=== PATIENT | male | born 1965 | race Caucasian/White ===

== ENCOUNTER → 2021-07-04 08:15 | Outpatient (CLI) | payer OTHER, SELFPAY ==
--- NOTE | 2021-07-04 | DI.MRI.S_ITS ---
PROCEDURE: MR KNEE LT WO CON INDICATIONS: Other specified injury of left quadriceps muscle TECHNIQUE: Noncontrast sagittal PD fast spin echo and T2 fast spin echo with fat saturation, sagittal 3-D FLASH with fat saturation; coronal T1 spin echo and PD fast spin echo with fat saturation, and axial PD fast spin echo with fat saturation through the knee. COMPARISON: None. FINDINGS: Image quality: Excellent. Anterior Cruciate Ligament: Mild mucoid degeneration or chronic partial tearing of the anterior cruciate ligament. The bulk of the ligament fibers are intact. Posterior Cruciate Ligament: Intact. Medial Collateral Ligament: Intact. Lateral Collateral Ligament: Intact. Medial Meniscus: Mild intrasubstance degeneration versus a questionable small subtle peripheral tear at the junction of the posterior horn and body of the medial meniscus. Lateral Meniscus: Intact. Medial and Lateral Tendons: The semimembranosus tendon insertions and meniscocapsular junction appear intact. Visualized portions of the pes anserinus tendons appear normal. No abnormal bursal fluid. The long and short heads of the biceps femoris tendon appear intact. The popliteus tendon appears intact. No signs of posterolateral corner injury. Iliotibial band appears normal. Anterior Structures: Moderate patellar tendinosis. Possible mild distal quadriceps tendinosis without a discrete tendon tear is seen. No patellar subluxation. No femoral trochlear dysplasia or ventral trochlear prominence. No edema in the infrapatellar fat pad. Bones: No acute trabecular bone injury or fracture. Medial Femorotibial Cartilage: Mild partial-thickness cartilage thinning in the weight-bearing portion of the medial femorotibial compartment. Lateral Femorotibial Cartilage: Intact. Patellofemoral Cartilage: Focal full-thickness cartilage loss is seen at the medial patellar facet with mild subchondral cystic changes and subchondral osteophyte formation. Soft Tissues: Large joint effusion. Trace medial popliteal cyst. The musculature surrounding the knee is normal in bulk. Mild nonspecific soft tissue edema is seen surrounding the knee. IMPRESSION: 1. Moderate patellar tendinosis and mild quadriceps tendinosis. No discrete tendon tear is seen. If there is concern for more proximal quadriceps pathology, an MRI of the femur or MRI of the hip could be performed for further evaluation. 2. Mild intrasubstance degeneration versus questionable small peripheral tear of the medial meniscus at the junction of the posterior horn and body. 3. Mild mucoid degeneration or chronic low-grade partial tearing of the anterior cruciate ligament. The bulk of the ligament fibers are intact. 4. Focal full-thickness cartilage loss at the medial patellar facet with subchondral cystic changes and subchondral osteophyte formation. Mild grade 2 cartilage thinning in the weight-bearing portion of the medial compartment. 5. Large joint effusion. Nonspecific soft tissue edema is seen surrounding the knee. Dictated by: Jarvis Viveros M.D. on 07/06/2021 at 8:41 Approved by: Jarvis Viveros M.D. on 07/06/2021 at 8:55
== END ==
PROVIDERS: Referring Provider Counselor Mental Health; Visit Provider Counselor Mental Health
DX: S76.192A Other specified injury of left quadriceps muscle, fascia and tendon, initial encounter (principal); M25.462 Effusion, left knee; X58.XXXA Exposure to other specified factors, initial encounter
CPT/HCPCS: 73721

== ENCOUNTER → 2022-05-12 09:56 | Outpatient (CLI) | payer OTHER, SELFPAY ==
--- NOTE | 2022-05-12 | DI.MRI.S_ITS ---
PROCEDURE: MR SHOULDER RT WO CON INDICATIONS: IMPINGEMENT SYNDROME TECHNIQUE: Noncontrast oblique coronal T2 fast spin echo with fat saturation, oblique sagittal T1 spin echo and T2 fast spin echo with fat saturation, axial T1 spin echo and T2 fast spin echo with fat saturation through the shoulder. COMPARISON: None. FINDINGS: Image quality: Excellent. Rotator cuff: Low to moderate grade bursal surface partial thickness tear involving distal supraspinatus at its insertion on humeral head is seen extending to musculotendinous junction. Distal infraspinatus and subscapularis tendinosis is seen. No full-thickness rotator cuff tendon rupture. Sagittal images demonstrate no significant rotator cuff muscle atrophy. Bones and bursae: No bone marrow contusions or fractures. Moderate acromioclavicular joint osteoarthritic changes are seen with joint space narrowing and downward osteophyte formation depressing the musculotendinous junction of supraspinatus. Small amount of subacromial subdeltoid bursal fluid is seen. Capsule and soft tissues: Signal abnormality, contour irregularity is seen involving superior anterior labrum at 12 to 1 o'clock position. The long head of the biceps tendon is thickened with intrasubstance T2 hyperintense signal and fluid within bicipital groove. The rotator interval appears normal, without fibrosis. The coracohumeral ligament is normal in thickness. IMPRESSION: 1. Low to moderate grade bursal surface partial thickness tear involving distal supraspinatus extending to musculotendinous junction. Distal infraspinatus and subscapularis tendinosis. No full-thickness rotator cuff tendon rupture. No significant muscle atrophy. 2. Moderate acromioclavicular joint osteoarthritis. No fracture or dislocation. Small amount of subacromial subdeltoid bursal fluid. 3. Suggestion of superior anterior labral tear at 12 to 1 o'clock position. 4. Tendinosis and low-grade intrasubstance partial-thickness tear involving proximal long head of biceps tendon. Dictated by: Melquiades Penny M.D. on 05/12/2022 at 12:40 Approved by: Melquiades Penny M.D. on 05/12/2022 at 12:43
--- NOTE | 2022-05-12 | DI.CT.S_ITS ---
PROCEDURE: CT ABDOMEN PELVIS W CON INDICATIONS: RECURRENT LEFT INGUINAL HERNIA/IMPINGEMENT SYNDROME TECHNIQUE: After the administration of oral and intravenous contrast, axial sections were acquired from the lung bases to the pubic symphysis. Coronal and sagittal reformats were performed. For radiation dose reduction, the following was used: automated exposure control, adjustment of mA and/or kV according to patient size. COMPARISON:None. FINDINGS: Image quality: Excellent. Lung bases: Unremarkable. Heart: No significant findings. ABDOMEN: Liver: Unremarkable. Gallbladder: Unremarkable. Biliary ducts: Unremarkable. Pancreas: Unremarkable. Spleen: Unremarkable. Adrenal Glands: Unremarkable. Kidneys and Ureters: Unremarkable. Stomach and Bowel: Stomach, small bowel loops, and colon are unremarkable. Peritoneum: No abnormal intraperitoneal fluid. No free air. Ventral Wall: No hernia. Abdominal Nodes: No retroperitoneal or mesenteric adenopathy by size criteria. Vessels: Aorta and inferior vena cava are normal in size. PELVIS: Pelvic Organs: Unremarkable. Bladder: Unremarkable. Pelvic Nodes: No enlarged lymph nodes. Miscellaneous: Fat containing left inguinal hernia originating from the lateral margin of the epigastric vessels. The neck measures 1.2 x 1.1 cm. Bones: Unremarkable. IMPRESSION: Indirect left inguinal hernia containing fat. The neck measures 1.2 x 1.1 cm. Dictated by: Jaylen Monroy M.D. on 05/12/2022 at 12:22 Approved by: Jaylen Monroy M.D. on 05/12/2022 at 12:25
== END ==
PROVIDERS: PCP Internal Medicine; Referring Provider Internal Medicine; Visit Provider Internal Medicine
DX: K40.91 Unilateral inguinal hernia, without obstruction or gangrene, recurrent (principal); M75.41 Impingement syndrome of right shoulder; M75.111 Incomplete rotator cuff tear or rupture of right shoulder, not specified as traumatic; M19.011 Primary osteoarthritis, right shoulder; S46.111A Strain of muscle, fascia and tendon of long head of biceps, right arm, initial encounter
CPT/HCPCS: 73221; 74177; Q9967

== ENCOUNTER 2022-06-09 13:29 | Day surgery (SDC) | payer BC, SELFPAY ==
[2022-06-01 10:27] VITALS: BMI 28.0
[2022-06-09] VITALS (8 sets, daily range): BP systolic 117–131; BP diastolic 75–86; PULSE 58–80; RESP 12–18; TEMP 36.4–36.6; O2SAT 90–99; BMI 28.0
[2022-06-09] MEDS: ACETAMINOPHEN 325 MG TABLET 975 MG PO (13:52)
[2022-06-09] MEDS: LACTATED RINGERS 1,000 ML 42 ML IV ×2 (13:53→16:26)
--- NOTE | 2022-06-09 15:21 | PM.PREOP ---
Pre-operative Note Interval Note History & Physical reviewed/Exam performed by Physician: Yes Changes to H&P: No
[2022-06-09] MEDS: CEFAZOLIN 2 GM/100 ML PREMIX 100 ML IV (15:37)
--- NOTE | 2022-06-09 15:55 | SUR.OPER ---
Supine on padded OR bed, head on pillow, arms tucked and padded with gel, legs uncrossed, safety belt at thigh, tape over blanket over lower legs. Gel pad under heels.
[2022-06-09] MEDS: BUPIVACAINE 0.25% (PF) VIAL 30 ML INJ (16:05)
[2022-06-09] MEDS: KETOROLAC 30 MG/ML VIAL IV (17:18)
[2022-06-09] MEDS: fentaNYL 100 MCG/2 ML INJ IV (17:21)
--- NOTE | 2022-06-09 17:21 | PM.OP.1 ---
Operative Date/Time/Diagnoses Date of procedure: 06/09/22 Time of procedure: 17:21 Pre-op diagnosis: Recurrent Left inguinal Post-op diagnosis: same Procedure & Clinicians Procedure: Laparoscopic repair of recurrent left hernia Same procedure as scheduled: Yes Indications: Symptomatic reducible recurrent left inguinal hernia. Two prior anterior repairs Surgeon: Greg Archibald Anesthesia Type: General Operative Notes Findings: Recurrent indirect defect. No direct floor defect. Specimen(s): none sent Estimated Blood Loss (mL): 25 Procedure in detail: The patient was brought to the operating room and placed supine on the table. Bilateral sequential compression devices were applied. General anesthesia was induced and they were intubated with an endotracheal tube. A doe cath was placed in sterile fashion. They received 2 g Ancef prior to skin incision. They were prepped and draped in sterile fashion. A time out was performed to ensure the correct patient, procedure and necessary equipment within the operating room. The skin was infiltrated with 0.25% bupivicaine. A 1 cm supra umbilical midline incision was made. The fascia was sharply incised and the abdomen entered traumatically. A 10mm balloon port was placed and pneumoperitoneum was established at 15mm Hg. Inspection of the abdomen demonstrated no evidence of injury upon entry. Two 5 mm ports were then placed under direct visualization in the right and left lower quadrant lateral to the rectus muscle. A indirect left inguinal hernia was observed. Starting on the left side the peritoneum 4 cm superior to the deep inguinal ring between the medial umbilical ligament and the anterior superior iliac spine was incised. The medial preperitoneal dissection was carried out into the space of Retzius bluntly, the bladder was swept inferiorly, the pubis and Alvarez's ligament were identified. Next attention was turned towards the lateral aspect of the peritoneal flap. The preperitoneal fat with the testicular vessels was carefully dissected off the inferior peritoneal flap. The cord was carefully inspected there was a indirect inguinal was skeltonized off the cord preserving the testicular vessels and the vas deferns. No evidence of a direct defect. A medium Bard 3D Max mesh was then placed into the abdomen and positioned such that the myopectineal orifice was completely covered with good overlap on all sides. The peritoneal flap was then repositioned back to its original position and a running V lock suture was used to close the peritoneum such that no bowel could herniate into the preperitoneal space. The area was examined for hemostasis. The 5mm trocars were removed under direct visualization and pneumoperitoneum was deflated through the umbilical trocar, The fascia at the umbilicus was closed with 0-Vicryl in figure of 8 fashion, skin closed with 4-0 Monocyl followed by Dermabond. The sponge and instrument count at the end of the case was correct. Both testicles were entirely within the scrotum at the end of the case. The patient emerged from anesthsia was extubated and transferred to recovery in stable condition. Complications: none Post-operative Condition: stable Disposition: same day surgery
[2022-06-09] MEDS: OXYCODONE IR 5 MG TABLET PO ×2 (17:33→18:03)
== END 2022-06-09 18:06 | disposition home or self-care (01) ==
PROVIDERS: PCP Internal Medicine; Referring Provider Surgery; Visit Provider Surgery
PROC: 0YQ64ZZ Repair Left Inguinal Region, Percutaneous Endoscopic Approach (ICD-10-PCS; CPT 49651; principal; 2022-06-09 14:45)
DX: K40.91 Unilateral inguinal hernia, without obstruction or gangrene, recurrent (principal)
CPT/HCPCS: 49651; J0690; J1100; J1885; J2405; J2704; J3010

== ENCOUNTER → 2022-07-01 09:37 | Outpatient (CLI) | payer BC, SELFPAY ==
--- NOTE | 2022-07-01 09:38 | DI.CT.S_ITS ---
PROCEDURE: CT ABDOMEN PELVIS W CON INDICATIONS: left groin pain TECHNIQUE: After the administration of oral and IV contrast, axial sections were acquired from the lung bases to the pubic symphysis. Coronal and sagittal reformats were performed. For radiation dose reduction, the following was used: automated exposure control, adjustment of mA and/or kV according to patient size. COMPARISON: [facility], CT, CT ABDOMEN PELVIS W CON, 05/12/2022, 11:15. FINDINGS: Image quality: Excellent. Lung bases: Unremarkable. Heart: No significant findings. ABDOMEN: Liver: Normal size. Mild hepatic steatosis. Gallbladder: Unremarkable. Biliary ducts: Unremarkable. Pancreas: Unremarkable. Spleen: Normal size. There is a 1.7 cm splenule near the inferior aspect of the spleen. Adrenal Glands: Unremarkable. Kidneys and Ureters: Unremarkable. Stomach and Bowel: Stomach, small bowel loops, and colon are unremarkable. Normal appendix. Peritoneum: No abnormal intraperitoneal fluid. No free air. Ventral Wall: There is a small fat containing umbilical hernia hernia. Abdominal Nodes: No retroperitoneal or mesenteric adenopathy by size criteria. Small subcentimeter mesenteric lymph nodes are most likely reactive. There is a calcified nodule in omentum. Vessels: Aorta and inferior vena cava are normal in size. PELVIS: Pelvic Organs: Unremarkable. Bladder: Unremarkable. Pelvic Nodes: No enlarged lymph nodes. Miscellaneous: Bilateral fat containing inguinal hernias are seen. There is stranding in the left groin. Bones: Unremarkable. IMPRESSION: 1. There are fat containing inguinal hernias bilaterally, left greater than right. There is stranding in the left groin. 2. Small fat containing umbilical hernia. Dictated by: Matthew Casey M.D. on 07/01/2022 at 13:26 Approved by: Matthew Casey M.D. on 07/01/2022 at 13:38
== END ==
PROVIDERS: PCP Internal Medicine; Referring Provider Surgery; Visit Provider Surgery
DX: K40.20 Bilateral inguinal hernia, without obstruction or gangrene, not specified as recurrent (principal); K42.9 Umbilical hernia without obstruction or gangrene; K76.0 Fatty (change of) liver, not elsewhere classified
CPT/HCPCS: 74177; Q9967